=== PATIENT | male | born 1970 ===

== ENCOUNTER 2017-11-12 15:20 | Emergency (ER) | payer MEDICAID ==
[2017-11-12 15:33] VITALS: BP 125/79; PULSE 60; RESP 18; TEMP 98; O2SAT 99
[2017-11-12 16:29] LABS: URINE BACTERIA RARE (<OCC); URINE BILIRUBIN NEGATIVE (NEGATIVE); URINE BLOOD NEGATIVE (NEGATIVE); URINE CLARITY Clear (Clear); URINE COLOR Yellow (YELLOW); URINE GLUCOSE (UA) NORMAL (Normal); URINE LEUKOCYTE ESTERASE NEG Leu/uL (Negative); URINE NITRATE NEGATIVE (NEGATIVE); URINE PROTEIN NEGATIVE (NEGATIVE); URINE UROBILINOGEN NORMAL mg/dL (0.2-1.0)
--- NOTE | 2017-11-12 16:29 | C.PDOC ---
Time Seen by Provider: 11/12/17 16:05 Chief Complaint (Nursing): Male Genitourinary Past Medical History Vital Signs: Last Vital Signs Temp 98 F 11/12/17 15:30 Pulse 60 11/12/17 15:30 Resp 18 11/12/17 15:30 BP 125/79 11/12/17 15:30 Pulse Ox 99 11/12/17 15:30 - Medical History PMH: Asthma Family History: States: Unknown Family Hx - Social History Hx Alcohol Use: No Hx Substance Use: No - Immunization History Hx Tetanus Toxoid Vaccination: No Hx Influenza Vaccination: No Hx Pneumococcal Vaccination: No ED Course And Treatment O2 Sat by Pulse Oximetry: 99 Medical Decision Making Medical Decision Making: today's eval c/w 2 prior eval's for mild b/l femoral and inguinal hernias, non- protruding. 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
== END 2017-11-12 16:38 | disposition home or self-care (01) ==
LOC: C.ER 15:20
DX: K41.20 Bilateral femoral hernia, without obstruction or gangrene, not specified as recurrent (principal); K40.20 Bilateral inguinal hernia, without obstruction or gangrene, not specified as recurrent

== ENCOUNTER 2019-02-01 11:57 | Emergency (ER) | payer BC, MEDICAID ==
[2019-02-01 11:57] VITALS: BMI 30.7
[2019-02-01 12:23] VITALS: BP 135/79; PULSE 79; RESP 18; TEMP 98.9; O2SAT 99
[2019-02-01] MEDS ORDERED: DTap Vaccine 0.5 ml Vial IM ONE (13:15)
--- NOTE | 2019-02-01 13:19 | C.PDOC ---
History Of Present Illness 48 y/o male presents to the ED for evaluation s/p dog bite. Patient states he sustained a bite to his left wayne from the family [place] two days ago. He notes slight swelling to the area and presents to the ED for a tetanus shot. He denies extremity numbness/weakness, fever, chills. Time Seen by Provider: 02/01/19 13:15 Chief Complaint (Nursing): Bite History Per: Patient History/Exam Limitations: no limitations Onset/Duration Of Symptoms: Days (2) Current Symptoms Are (Timing): Still Present Past Medical History Reviewed: Historical Data, Nursing Documentation, Vital Signs Vital Signs: Last Vital Signs Temp 98.9 F 02/01/19 12:20 Pulse 79 02/01/19 12:20 Resp 18 02/01/19 12:20 BP 135/79 02/01/19 12:20 Pulse Ox 99 02/01/19 12:20 - Medical History PMH: Asthma, Hypercholesterolemia Denies: Chronic Kidney Disease Surgical History: No Surg Hx Family History: States: Unknown Family Hx - Social History Hx Alcohol Use: No Hx Substance Use: No - Immunization History Hx Tetanus Toxoid Vaccination: No Hx Influenza Vaccination: No Hx Pneumococcal Vaccination: No Review Of Systems Constitutional: Negative for: Fever, Chills Skin: Positive for: Other (dog bite left wayne ) Neurological: Negative for: Weakness, Numbness Physical Exam - Physical Exam Appears: Non-toxic, No Acute Distress Skin: Normal Color, Warm, Dry, Other (redness, swelling and abrasion from teeth to left wayne. no active bleeding ) Extremity: Normal ROM Neurological/Psych: Normal Speech, Normal Cognition, Normal Sensation ED Course And Treatment O2 Sat by Pulse Oximetry: 99 (on RA) Pulse Ox Interpretation: Normal Medical Decision Making Medical Decision Making: Tetanus administered. Patient is stable for discharge with wound care and f/u instructions. Disposition Counseled Patient/Family Regarding: Diagnosis, Need For Followup - Disposition Referrals: [facility] [Outside] Disposition: HOME/ ROUTINE Disposition Time: 13:16 Condition: STABLE Additional Instructions: [employer] - Right Aid [address] Prescriptions: Amoxicillin/Clavulanate [Augmentin 875 MG-125 MG] 1 tab PO BID #28 tab Instructions: Animal Bites (DC) Forms: Gen Discharge Inst Lao, [employer] (Lao), Work Excuse - POA Present On Arrival: None - Clinical Impression Clinical Impression: Animal bite wound - Scribe Statement The provider has reviewed the documentation as recorded by the Scribe (Amber Sheridan) Provider Attestation: All medical record entries made by the Scribe were at my direction and personally dictated by me. I have reviewed the chart and agree that the record accurately reflects my personal performance of the history, physical exam, medical decision making, and the department course for this patient. I have also personally directed, reviewed, and agree with the discharge instructions and disposition.
[2019-02-01] MEDS ORDERED: Tdap Vaccine 0.5 ml Vial (10-64 yrs) IM ONE (13:27)
== END 2019-02-01 13:37 | disposition home or self-care (01) ==
LOC: C.ER 11:57
DX: S80.812A Abrasion, left lower leg, initial encounter (principal); W54.0XXA Bitten by dog, initial encounter; Z23 Encounter for immunization; E78.00 Pure hypercholesterolemia, unspecified